=== PATIENT | male | born 1995 | race Caucasian/White ===

== ENCOUNTER 2020-04-25 12:58 | Emergency (ER) | payer OTHER ==
[2020-04-25] MEDS ORDERED: Sodium Chloride 0.9% 1,000 ML ONE ×2 (13:23→14:48)
[2020-04-25] MEDS ORDERED: Ketorolac Tromethamine 30 MG/ML VIAL ONE ×2 (13:23→13:26)
[2020-04-25] MEDS ORDERED: Ondansetron PF 4 MG/2 ML Vial ONE ×2 (13:23→13:25)
[2020-04-25 13:53] LABS: #Basophils 0.1 thou/uL (0.0-0.2); #Lymphocytes 1.2 thou/uL (1.20-3.40); #Monocytes 0.6 thou/uL (0.11-0.59); #Neutrophils 3.4 thou/uL (1.40-6.50); %Basophils 1.1 % (0.0-1.0); %Eosinophils 0.7 % (0.0-10.0); %Lymphocytes 22.1 % (21.0-51.0); %Monocytes 11.1 % (0.0-10.0); %Neutrophils 65.1 % (42.0-75.0); Hemoglobin 16.7 g/dL (14.0-18.0); Mean Corpuscular HGB CONC 33.4 g/dL (32.0-36.0); Mean Corpuscular Hemoglobin 30.2 pg (27.0-31.0); Mean Corpuscular Volume 90.4 fL (78.0-98.0); Mean Platelet Volume 7.7 fL (7.4-10.4); Platelet Count 144 thou/uL (130-400); RBC Distribution Width 10.5 % (11.5-14.5); Red Blood Cell (RBC) Count 5.55 mill/uL (4.70-6.10); White Blood Cell (WBC) Count 5.3 thou/uL (4.8-10.8)
[2020-04-25 14:08] LABS: ALT (SGPT) 29 U/L (8-55); AST (SGOT) 22 U/L (5-34); Albumin 4.2 g/dL (3.5-5.0); Alkaline Phosphatase 56 U/L (40-110); Anion Gap 16 mmol/L (10-20); BUN (Urea Nitrogen) 15 mg/dL (8.9-20.6); Bilirubin, Total 0.5 mg/dL (0.2-1.2); Calc. Creatinine Clearance 0 mL/min (70-130); Calcium 8.6 mg/dL (7.8-10.44); Carbon Dioxide 25 mmol/L (22-29); Chloride 102 mmol/L (98-107); Estimated GFR-MDRD 67; Globulin 2.7 g/dL (2.4-3.5); Glucose 101 mg/dL (70-105); Potassium 3.9 mmol/L (3.5-5.1); Protein, Total 6.9 g/dL (6.0-8.3); Sodium 139 mmol/L (136-145)
[2020-04-25 14:46] LABS: Bilirubin Negative (Negative); Blood, Urine Large (Negative); Glucose, Urine (Dipstick) Negative (Negative); Ketone, Urine Trace mg/dL (Negative); Leukocyte Negative (Negative); Nitrite Negative (Negative); Protein, Urine (Dipstick) 30 mg/dL (Neg-Trace)
[2020-04-25 14:47] LABS: Clarity Cloudy (Clear)
[2020-04-25 14:48] LABS: RBC/HPF Greater than 50 HPF (0-3)
[2020-04-25] MEDS ORDERED: Morphine 4 MG/ML VIAL ONE (14:48)
[2020-04-25 14:51] LABS: Bacteria/HPF Rare-Few HPF (None Seen); Mucous/LPF 2+ LPF (<2+); Squamous Epithelial 0-3 HPF (0-3); WBC/HPF 0-3 HPF (0-3)
[2020-04-25] MEDS ORDERED: Tamsulosin HCl 0.4 MG CAP ONE (15:00)
--- NOTE | 2020-04-25 15:02 | CT ---
CT ABDOMEN AND PELVIS WITHOUT CONTRAST USING STONE PROTOCOL: 04/25/20 HISTORY: Left flank pain radiating to the left lower quadrant. FINDINGS: Absence of oral and IV contrast reduces the sensitivity of the exam, particularly for the evaluation of solid organs and bowel. The lung bases are clear. No calcified gallstones are seen. No free air or free fluid is seen in the abdomen or pelvis. Tiny calculi is seen in the left kidney. There is a 2-3 mm calculus in the dependent portions of the urinary bladder close to the left UVJ. No significant hydroureteronephrosis seen on either side. Ther e is mild prominence of the left ureter compared to the right. No calculi is seen in the right kidney or the right ureter. The aorta is of normal caliber. The bony structures are unremarkable. IMPRESSION: 1. A 2-3 mm recently passed left sided calculus into the urinary bladder. 2. Nonobstructing tiny left renal calculi. POS: OFF
== END 2020-04-25 16:30 | disposition home or self-care (01) ==
LOC: MADERS 12:58
DX: N20.2 Calculus of kidney with calculus of ureter (principal)
CPT/HCPCS: 36415; 74176; 80053; 81003; 81015; 85025; 94760; 96374; 96375; J1885; J2270; J2405; J7050